=== PATIENT | female | born 1985 | race Caucasian/White ===

== ENCOUNTER 2016-09-04 18:53 | Emergency (ER) | payer OTHER ==
[~2016-09-04] VITALS: Ht 160 cm; Wt 68.0 kg
[2016-09-04 19:47] LABS: CALCIUM 9.2 mg/dL (8.5-10.1); CARBON DIOXIDE 24.6 mmol/L (21-32); CREATININE SERUM 1.4 mg/dL (0.6-1.0); POTASSIUM SERUM 4.3 mmol/L (3.5-5.1)
[2016-09-04 20:00] LABS: BASOPHIL % 0.3 % (0-2); PLATELET COUNT 269 x10^3mcL (130-400); RED CELL DISTRIBUTION WIDTH 12.1 % (11.5-14.5)
[2016-09-04 20:54] VITALS: BP 121/74
== END 2016-09-04 20:54 | disposition home or self-care (01) ==
LOC: ED 18:53
PROVIDERS: Emergency Medicine
DX: G40.409 Other generalized epilepsy and epileptic syndromes, not intractable, without status epilepticus (principal); E86.0 Dehydration; Z79.899 Other long term (current) drug therapy
CPT/HCPCS: J7030

== ENCOUNTER 2017-12-28 17:48 | Emergency (ER) | payer OTHER ==
[~2017-12-28] VITALS: Ht 160 cm; Wt 61.2 kg
[2017-12-28 17:52] VITALS: Ht 160 cm; Wt 61.2 kg
[2017-12-28 18:43] VITALS: BP 118/83
[2017-12-28 18:48] LABS: CARBON DIOXIDE 23.4 mmol/L (21-32); CREATININE SERUM 1.2 mg/dL (0.6-1.0); MAGNESIUM 2.2 mg/dL (1.8-2.4); POTASSIUM SERUM 4.7 mmol/L (3.5-5.1)
== END 2017-12-28 19:22 | disposition home or self-care (01) ==
LOC: ED 17:48
PROVIDERS: Emergency Medicine
DX: G40.409 Other generalized epilepsy and epileptic syndromes, not intractable, without status epilepticus (principal)

== ENCOUNTER 2018-01-11 18:23 | Emergency (ER) | payer OTHER ==
[~2018-01-11] VITALS: Ht 170.2 cm; Wt 63.5 kg
[2018-01-11 18:28] VITALS: Ht 170.2 cm; Wt 63.5 kg
[2018-01-11 18:52] VITALS: BP 119/67
== END 2018-01-11 19:14 | disposition home or self-care (01) ==
LOC: ED 18:23
DX: G40.909 Epilepsy, unspecified, not intractable, without status epilepticus (principal)

== ENCOUNTER 2019-06-01 01:43 | Emergency (ER) | payer OTHER ==
[~2019-06-01] VITALS: Ht 160 cm; Wt 63.5 kg
[2019-06-01 01:47] VITALS: Ht 160 cm; Wt 63.5 kg
[2019-06-01 02:39] LABS: UA SPECIFIC GRAVITY <=1.005 (1.005-1.035); microscopic required? YES; urine erythrocyte 3+ (NEGATIVE)
[2019-06-01 02:41] LABS: BASOPHIL % 0.4 % (0-2); PLATELET COUNT 269 x10^3mcL (130-400); RED CELL DISTRIBUTION WIDTH 12.3 % (11.5-14.5)
[2019-06-01 02:48] LABS: AMPHETAMINE QUAL UR NONE DETECTED (See below)
[2019-06-01 03:05] LABS: CALCIUM 7.9 mg/dL (8.5-10.1); CARBON DIOXIDE 27.3 mmol/L (21-32); CHLORIDE SERUM 109 mmol/L (98-107); CREATININE SERUM 0.9 mg/dL (0.6-1.0); GFR1 > 60 mL/min; GLUCOSE SERUM 89 mg/dL (74-106); POTASSIUM SERUM 3.6 mmol/L (3.5-5.1); SODIUM SERUM 142 mmol/L (136-145)
[2019-06-01 03:09] LABS: ALKALINE PHOSPHATASE 55 U/L (46-116); ALT/SGPT 18 U/L (14-59); AST/SGOT 20 U/L (15-37); BILIRUBIN TOTAL 0.14 mg/dL (0.20-1.00); TOTAL PROTEIN, SERUM 6.4 g/dL (6.4-8.2)
[2019-06-01 03:43] LABS: ALBUMIN 3.2 g/dL (3.4-5.0)
[2019-06-01] MEDS ORDERED: ONFI20 MG PO (09:15)
[2019-06-01] MEDS ORDERED: KEPPRA1000 M1 PO (09:19)
[2019-06-01] MEDS ORDERED: VIMPAT200 M1 PO (09:20)
[2019-06-01 11:06] VITALS: BP 115/72
== END 2019-06-01 11:06 | disposition short-term general hospital (02) ==
LOC: ED 01:43
PROVIDERS: Emergency Medicine
DX: R45.851 Suicidal ideations (principal); F32.9 Major depressive disorder, single episode, unspecified
CPT/HCPCS: G0480; J2060; J7030; Q0092

== ENCOUNTER 2019-06-20 16:15 | Emergency (ER) | payer OTHER ==
[~2019-06-20] VITALS: Ht 160 cm; Wt 64.4 kg
[~2019-06-20 16:15] MED LIST: KEPPRA1000 M1 PO; ONFI20 MG PO; VIMPAT200 M1 PO
[2019-06-20 16:25] VITALS: Ht 160 cm; Wt 64.4 kg
[2019-06-20 18:25] VITALS: BP 134/69
== END 2019-06-20 18:25 | disposition home or self-care (01) ==
LOC: ED 16:15
DX: J98.01 Acute bronchospasm (principal); G40.909 Epilepsy, unspecified, not intractable, without status epilepticus
CPT/HCPCS: Q0092